=== PATIENT | male | born 1990 ===

== ENCOUNTER 2021-05-09 21:03 | Emergency (ER) | payer SELFPAY ==
[~2021-05-09] VITALS: Ht 170.2 cm; Wt 72.5 kg
[2021-05-09 22:46] VITALS: BP 140/94
== END 2021-05-09 23:00 | disposition left against medical advice (07) ==
LOC: EMS 21:05
DX: F43.9 Reaction to severe stress, unspecified (principal)
CPT/HCPCS: 99283; Z7502